=== PATIENT | male | born 1960 | race Caucasian/White ===

== ENCOUNTER 2021-03-28 07:41 | Day surgery (SDC) | payer BC ==
[~2021-03-28 07:41] MED LIST: Lactated Ringers 1,000 ML IV SCH
[2021-03-28] MEDS ORDERED: Propofol 200 MG/20 ML SDV ONE (09:08)
[2021-03-28] MEDS ORDERED: fentaNYL 100 MCG/2 ML SDV ONE (09:08)
[2021-03-29] MEDS ORDERED: Lactated Ringers 1,000 ML IV SCH (07:00)
--- NOTE | 2021-03-29 08:18 | OR ---
PREOPERATIVE DIAGNOSIS: Positive family history of colon cancer in father. The patient's last colonoscopy was 10 years ago. POSTOPERATIVE DIAGNOSES: 1. Scattered polypoid-like tissue to the distal ileum. Cold biopsy x2 bites taken. This did appear benign in appearance. 2. Mildly tortuous colon but otherwise normal. PROCEDURE: Colonoscopy with cold biopsy x1 site (distal ileum using cold forceps). SURGEON: Shane Salter M.D. ANESTHESIA: Monitored anesthesia care. BOWEL PREP: Fair to good. DESCRIPTION OF PROCEDURE: James is a 61-year-old male who was brought to the endoscopy suite after discussing risks and benefits of the procedure. Informed consent was obtained for conscious sedation and colonoscopy with or without biopsy and/or polypectomy. We also discussed possibility of missed lesions. Pre-procedure exam was unremarkable. IV, oxygen, and monitors were placed. The patient was placed in the left lateral decubitus position. Sedation was administered and a digital rectal exam was performed and unremarkable. Colonoscope was passed into the rectum and slowly advanced all the way to the cecum. Cecum was viewed and photographed. Ileocecal valve was intubated and distal ileum did reveal scattered polypoid-like tissue throughout the visualized portion. This did appear to be benign lymph-like tissue. Cold biopsy x2 bites taken. The colonoscope was slowly withdrawn and the mucosa was closed observed in a direct circumferential manner. The ascending colon was unremarkable. The transverse colon was unremarkable. The descending colon was unremarkable. The sigmoid colon was unremarkable. Retroflexion was performed. Rectal mucosa was unremarkable except for some mild irritation, likely prep induced. Scope was removed. The patient tolerated the procedure well. The patient was monitored until that baseline status. Discharge instructions were reviewed and the patient was discharged in good condition. COMPLICATIONS: None. TOTAL TIME: 28 minutes. ESTIMATED BLOOD LOSS: Less than 1 mL. RECOMMENDATIONS/FOLLOWUP: We will await results of path report to determine ideal followup interval. I am expecting probable recommendation of 5 years given the positive family history. I am going to have the patient hold his aspirin for 2 days to limit any chance of bleeding from the biopsy sites within the distal ileum. I would like to kindly thank Dr. Rosales for this referral. DMB: 03/28/2021 12:04:36 MODL: 03/28/2021 18:09:26 /[id number]
== END 2021-03-28 11:45 | disposition home or self-care (01) ==
LOC: VM.SDS 07:41
PROVIDERS: ATTEND Family Medicine
DX: Z12.11 Encounter for screening for malignant neoplasm of colon (principal); K63.89 Other specified diseases of intestine; F41.9 Anxiety disorder, unspecified; Z98.890 Other specified postprocedural states; Z79.899 Other long term (current) drug therapy; Z88.8 Allergy status to other drugs, medicaments and biological substances; Z80.0 Family history of malignant neoplasm of digestive organs; Z91.013 Allergy to seafood; Z79.82 Long term (current) use of aspirin
CPT/HCPCS: 00811; J2704; J3010; J7120

== ENCOUNTER 2024-07-09 09:36 | Emergency (ER) | payer MEDICARE, BC ==
[2024-07-09] MEDS ORDERED: Sodium Chloride 0.9% 10 ML Syringe FLUSH PRN (09:46)
[2024-07-09] MEDS ORDERED: Lactated Ringers 1,000 ML IV ONE (09:50)
[2024-07-09] MEDS ORDERED: Meclizine 25 MG Tab PO ONE (09:50)
[2024-07-09 09:58] LABS: BASOPHILS PERCENT AUTO 0.6 % (0.2-1.2); EOSINOPHILS ABSOLUTE AUTO 0.5 x10^3/uL (0.0-0.5); EOSINOPHILS PERCENT AUTO 10.8 % (0.0-4.0); HEMOGLOBIN 14.1 g/dL (14.0-18.0); LYMPHOCYTES ABSOLUTE AUTO 1.2 x10^3/uL (1.0-4.8); MEAN CORPUSCULAR HEMOGLOBIN 33.5 pg (26.0-32.0); MEAN CORPUSCULAR HGB CONC 36.2 g/dL (32.0-36.0); MEAN CORPUSCULAR VOLUME 92.6 fL (78.0-93.0); MONOCYTES ABSOLUTE AUTO 0.6 x10^3/uL (0.0-0.8); MONOCYTES PERCENT AUTO 12.4 % (2.0-11.0); NEUTROPHILS ABSOLUTE AUTO 2.6 x10^3/uL (1.8-7.7); NEUTROPHILS PERCENT AUTO 52.2 % (50.0-80.0); PLATELET COUNT,PLT 222 x10^3/uL (130-400); RED BLOOD CELL COUNT 4.21 x10^6/uL (4.5-6.0)
[2024-07-09 10:16] LABS: PROTHROMBIN TIME 10.9 SEC (9.6-12.0); PTT,PARTIAL THROMBOPLSTIN TIME 25.6 SEC (23.5-33.2)
[2024-07-09 10:30] LABS: A/G RATIO 1.06; ALANINE AMINOTRANSFERASE,ALT 37 U/L (16-63); ALBUMIN 3.4 g/dL (3.4-5.0); ALKALINE PHOSPHATASE 105 U/L (46-116); ASPARTATE AMNIOTRANSFERASE,AST 38 U/L (15-37); BILIRUBIN TOTAL 1.1 mg/dL (0.2-1.0); BLOOD UREA NITROGEN,BUN 16 mg/dL (7-18); CALCIUM 8.6 mg/dL (8.5-10.1); CARBON DIOXIDE,CO2 30 mmol/L (21-32); CHLORIDE,CL 104 mmol/L (98-107); GLUCOSE RANDOM 105 mg/dL (70-99); MAGNESIUM 1.6 mg/dL (1.8-2.4); POTASSIUM,K 3.8 mmol/L (3.5-5.1); PROTEIN TOTAL,TP 6.6 g/dL (6.4-8.2); SODIUM,NA 141 mmol/L (136-145); TSH ULTRASENSITIVE 1.538 uIU/mL (0.358-3.74)
[2024-07-09 10:31] LABS: ANION GAP 10.8 mmol/L (5-15); C-REACTIVE PROTEIN < 0.50 mg/dL (<=0.50); ESTIMATED GFR 84 mL/min (>=60)
== END 2024-07-09 12:39 | disposition home or self-care (01) ==
LOC: VM.ED 09:36
DX: H81.399 Other peripheral vertigo, unspecified ear (principal); Z88.8 Allergy status to other drugs, medicaments and biological substances; Z91.013 Allergy to seafood; Z79.82 Long term (current) use of aspirin; Z79.899 Other long term (current) drug therapy
CPT/HCPCS: 70450; 71045; 73030-LT; 80053; 83735; 84443; 84484; 85025; 85610; 85730; 86140; 93005; 93010; 99284